=== PATIENT | female | born 1940 | race Caucasian/White ===

== ENCOUNTER 2018-12-21 09:48 | Outpatient (CLI) | payer MEDICARE ==
--- NOTE | 2018-12-21 12:30 | BD ---
Exam: DEXA Bone Density History: Post menopausal. Lumbar Spine: BMD (g/cm2) L1 1.131 T-Score: 1.3 L2 1.041 T-Score: 0.1 L3 1.255 T-Score: 1.6 L4 1.404 T-Score: 3.1 L1-L4 1.232 T-Score: 1.6 Femoral Neck: 0.755 T-Score: -0.8 Total Femur: 0.950 T-Score: 0.1 Impression: Normal bone marrow density of the lumbar spine and left femoral neck. POS: TPC
== END 2018-12-21 09:49 | disposition home or self-care (01) ==
LOC: BICMAMMO 09:48
PROVIDERS: ATTEND Obstetrics & Gynecology
DX: Z13.820 Encounter for screening for osteoporosis (principal); M81.0 Age-related osteoporosis without current pathological fracture; M85.80 Other specified disorders of bone density and structure, unspecified site; Z79.890 Hormone replacement therapy
CPT/HCPCS: 77080

== ENCOUNTER 2022-05-23 19:00 | Outpatient (CLI) | payer MEDICARE | END 2022-05-23 19:01 | disposition home or self-care (01) | LOC: SLEEPLAB 19:00 | PROVIDERS: ATTEND Internal Medicine | DX: G47.33 Obstructive sleep apnea (adult) (pediatric) (principal); R06.83 Snoring; I10 Essential (primary) hypertension; K21.9 Gastro-esophageal reflux disease without esophagitis; G47.00 Insomnia, unspecified; G47.10 Hypersomnia, unspecified; G25.81 Restless legs syndrome; R09.02 Hypoxemia; E66.9 Obesity, unspecified; Z68.27 Body mass index [BMI] 27.0-27.9, adult | CPT/HCPCS: 95810 ==

== ENCOUNTER 2023-03-26 09:36 | Outpatient (CLI) | payer MEDICARE | END 2023-03-26 09:37 | disposition home or self-care (01) | LOC: ULT 09:36 | PROVIDERS: ATTEND Internal Medicine | DX: I10 Essential (primary) hypertension (principal) | CPT/HCPCS: 76770; 93975 ==

== ENCOUNTER 2024-06-18 12:47 | Outpatient (CLI) | payer MEDICARE | END 2024-06-18 12:48 | disposition home or self-care (01) | LOC: ULT 12:47 | PROVIDERS: ATTEND Family Medicine | DX: M79.662 Pain in left lower leg (principal); M79.89 Other specified soft tissue disorders ==